=== PATIENT | male | born 1970 | race Caucasian/White ===

== ENCOUNTER 2016-12-01 15:31 | Emergency (ER) | payer OTHER ==
[~2016-12-01] VITALS: Ht 167.6 cm; Wt 79.5 kg
[~2016-12-01 15:31] MED LIST: NO MEDS
[2016-12-01 15:33] VITALS: Ht 167.6 cm; Wt 79.5 kg
[2016-12-01] MEDS ORDERED: LORAZEPAM 2 MG INJ IV STA (16:18)
[2016-12-01] MEDS ORDERED: MAGNESIUM SULFATE 2 GM, MULTIVITAMINS 10 ML, THIAMINE 100 MG, FOLIC ACID 1 MG in SOD CH... IV STA (16:18)
[2016-12-01] MEDS ORDERED: OLANZAPINE (ODT) 5 MG TAB PO STA (16:18)
--- NOTE | 2016-12-01 16:22 | ERA ---
ER Documentation Chief Complaint Date/Time DATE: 12/01/16 TIME: 16:22 Chief Complaint Auditory hallucinations x3 days. +Meth use yesterday, -SI/HI, +back pain HPI 46yo undomiciled male with h/o alcohol and methamphetamine abuse presents to the ED c/o several day h/o worsening auditory hallucinations and anxiety. Reports binge methamphetamine use for the last several days. No visual hallucinations. Denies suicidal or homicidal ideations. Denies chest pain, palpitations, shortness of breath, cough, nausea, vomiting or melanotic stools. No fevers or chills. ROS All systems reviewed and are negative except as per history of present illness. Medications Home Meds Active Scripts Lorazepam* (Lorazepam*) 1 Mg Tablet, 1 MG PO bed time, #7 TAB Prov:CARLITO RUSSELL MD 12/02/16 Olanzapine* (Zyprexa*) 10 Mg Tablet, 10 MG PO bed time, #7 TAB Prov:CARLITO RUSSELL MD 12/02/16 Discontinued Reported Medications [None] No Conflict Check 02/01/13 [No Meds] No Conflict Check 03/25/12 Allergies Allergies: Coded Allergies: No Known Allergy (Unverified , 12/01/16) PMhx/Soc Reviewed in chart. As per HPI. Medical and Surgical Hx: pt denies Medical Hx History of Surgery: Yes (tail bone cyst removal ) Anesthesia Reaction: No Hx Neurological Disorder: No Hx Respiratory Disorders: No Hx Cardiac Disorders: No Hx Psychiatric Problems: No Hx Miscellaneous Medical Probl: No Hx Alcohol Use: Yes (drinks beer 40oz x4 a day) Hx Substance Use: Yes Hx Tobacco Use: Yes (1 pack a day) Smoking Status: Current every day smoker FmHx No psychiatric disease, stroke or cancer. Physical Exam Vitals Vital Signs Date Time Temp Pulse Resp B/P Pulse Ox O2 Delivery O2 Flow Rate FiO2 12/02/16 06:03 64 16 126/63 100 Room Air 12/02/16 05:00 55 16 120/52 98 Room Air 12/02/16 03:00 63 16 112/62 100 Room Air 12/02/16 01:00 61 117/63 100 Room Air 12/01/16 23:15 73 16 112/63 100 Nasal Cannula 2.0 12/01/16 21:00 71 16 102/60 100 Nasal Cannula 2.0 12/01/16 19:30 74 16 103/59 100 Nasal Cannula 2.0 12/01/16 17:00 78 18 109/62 100 Nasal Cannula 2.0 12/01/16 15:33 98.3 101 16 136/81 96 Physical Exam Const: Alert, anxious, moderate distress. Poor hygiene. Head: Atraumatic Eyes: Normal Conjunctiva. EMILY. EOMI. Horizontal nystagmus. ENT: Normal External Ears, Nose and Mouth. Neck: Full range of motion. Nontender. No meningismus. Resp: Clear to auscultation bilaterally Cardio: Regular rate and rhythm, no murmurs Abd: Soft, non tender, non distended. Normal bowel sounds Skin: No petechiae or rashes Back: No midline or flank tenderness Ext: No cyanosis, or edema Neur: Awake and alert Psych: Anxious. Mildly agitated but cooperative. Responding to internal stimuli. Denies suicidal or homicidal ideations. Result Diagram: 12/01/16 1630 12/01/16 1630 Results 24 hrs Laboratory Tests Test 12/01/16 16:30 White Blood Count 13.010^3/ul Red Blood Count 4.5810^6/ul Hemoglobin 14.1g/dl Hematocrit 39.7% Mean Corpuscular Volume 86.7fl Mean Corpuscular Hemoglobin 30.8pg Mean Corpuscular Hemoglobin Concent 35.5g/dl Red Cell Distribution Width 11.6% Platelet Count 50081^3/UL Mean Platelet Volume 10.9fl Neutrophils % 71.3% Lymphocytes % 21.0% Monocytes % 5.7% Eosinophils % 1.2% Basophils % 0.4% Nucleated Red Blood Cells % 0.0/100WBC Neutrophils # 9.310^3/ul Lymphocytes # 2.710^3/ul Monocytes # 0.710^3/ul Eosinophils # 0.210^3/ul Basophils # 0.110^3/ul Nucleated Red Blood Cells # 0.010^3/ul Urine Color YELLOW Urine Clarity CLEAR Urine pH 5.5 Urine Specific [place] >=1.030 Urine Ketones NEGATIVE Urine Nitrite NEGATIVE Urine Bilirubin NEGATIVE Urine Urobilinogen 0.2 E.U./dL Urine Leukocyte Esterase NEGATIVE Urine Microscopic RBC NONE SEEN/HPF Urine Microscopic WBC 0-2/HPF Urine Bacteria FEW Urine Mucus MODERATE Urine Sperm MODERATE Urine Hemoglobin NEGATIVE Urine Glucose NEGATIVE% Urine Total Protein 1+ Sodium Level 139mmol/L Potassium Level 4.2mmol/L Chloride Level 102mmol/L Carbon Dioxide Level 28mmol/L Anion Gap 13 Blood Urea Nitrogen 19mg/dl Creatinine 1.12mg/dl Glucose Level 94mg/dl Calcium Level 9.4mg/dl Total Bilirubin 0.8mg/dl Direct Bilirubin 0.00mg/dl Indirect Bilirubin 0.8mg/dl Aspartate Amino Transf (AST/SGOT) 36IU/L Alanine Aminotransferase (ALT/SGPT) 38IU/L Alkaline Phosphatase 60IU/L Total Protein 7.6g/dl Albumin 4.9g/dl Globulin 2.70g/dl Albumin/Globulin Ratio 1.81 Salicylates Level < 1.0mg/dl Urine Opiates Screen Negative Acetaminophen Level < 10.0ug/ml Urine Barbiturates Negative Urine Amphetamines Screen POS Urine Benzodiazepines Screen Negative Urine Cocaine Screen Negative Urine Cannabinoids Negative Ethyl Alcohol Level < 10.0mg/dl Current Medications Medications (Trade) Dose Ordered Sig/Ashvin Route PRN Reason Start Time Stop Time Status Last Admin Dose Admin Magnesium Sulfate/ Multivitamins/ Thiamine HCl/ Folic Acid/Sodium Chloride (Magnesium Sulfate/Mvi Adult/ Vitamin B1/Folic Acid/NS) 1,015.2 ml @ 500 mls/ hr Q2H2M STAT IV 12/01/16 16:18 12/01/16 18:19 DC 12/01/16 16:41 Lorazepam (Ativan) 1 mg ONCE STAT IV 12/01/16 16:18 12/01/16 16:20 DC 12/01/16 16:38 Olanzapine (Zyprexa Zydis) 10 mg ONCE STAT PO 12/01/16 16:18 12/01/16 16:20 DC 12/01/16 16:41 Procedures/MDM DOCUMENTS REVIEWED: ED nurse, prior ED, prior records REEXAMINATION/REEVALUATION: Time: 18:00. Sleeping. O2 sat 100%. Uncooperative with social media job titles. Time: 19:00. Sleeping but arousable with sternal rub. Uncocoperative and "just wants to sleep. Time: 20:30. Sleeping. O2 sat 100% Time: 22:00. More easily arousable but still uncooperative. Medical Decision Makinyo undomiciled male with h/o alcohol and methamphetamine abuse presents to the ED c/o several day h/o worsening auditory hallucinations and anxiety. Zyprexa 10mg and Ativan 1mg given. Based on history , physical exam and appropriate lab tests, I appreciate no evidence of significant life threatening injury or illness that precludes psychiatric hospitalization. There are no toxic, infectious, metabolic, DIRECTOR OUTCOMES or other unstable co-morbities. Patient is thus medically clear but continues to be sleepy and uncooperative after 6 hours of observation. Presentation consistent with exacerbation of previously diagnosed psychiatric disease and methamphetamine induced psychosis. An element of alcohol withdrawal may be present but DT's unlikely. Patient will require ongoing observation pending tele -psychiatry evaluation when awake and cooperative. OBSERVATION NOTE: At 17:00 the patient was entered into observation to determine the nned for admission. During this time he was treated for agitation and hallucinations. Extensive evaluation and repeat exams performed. At 23:00 he is still sleepy and uncooperative. Will require ongoing observation and endorsed to the oncoming physician. TOTAL OBSERVATION TIME: 6 hours Departure Diagnosis: Primary Impression: Hallucinations Additional Impressions: Methamphetamine abuse Homelessness Condition: Serious KRISH ALFARO MD Dec 01, 2016 16:22
[2016-12-01 16:51] LABS: ADD SCAN DIFF NO
[2016-12-01 16:53] LABS: ADD UMIC YES; BASOPHIL # 0.1 10^3/ul (0.0-0.1); BASOPHILS % 0.4 % (0.0-2.0); EOSINOPHILS # 0.2 10^3/ul (0.0-0.5); EOSINOPHILS % 1.2 % (0.0-7.0); HEMATOCRIT 39.7 % (42.0-52.0); HEMOGLOBIN 14.1 g/dl (14.0-18.0); LYMPHOCYTES # 2.7 10^3/ul (0.8-2.9); MEAN CORPUSCULAR HEMOGLOBIN 30.8 pg (29.0-33.0); MEAN CORPUSCULAR HGB CONC 35.5 g/dl (32.0-37.0); MEAN CORPUSCULAR VOLUME 86.7 fl (82.0-101.0); MEAN PLATELET VOLUME 10.9 fl (7.4-10.4); MONOCYTE # 0.7 10^3/ul (0.3-0.9); MONOCYTES % 5.7 % (0.0-11.0); NEUTROPHIL # 9.3 10^3/ul (1.6-7.5); NEUTROPHILS % 71.3 % (39.0-77.0); PLATELET COUNT 258 10^3/UL (140-415); RED BLOOD COUNT 4.58 10^6/ul (4.70-6.10); RED CELL DISTRIBUTION WIDTH 11.6 % (11.5-14.5); UR BILIRUBIN (Dip) NEGATIVE (NEGATIVE); UR BLOOD (Dip) NEGATIVE (NEGATIVE); UR CLARITY CLEAR (CLEAR); UR COLOR YELLOW (YELLOW); UR GLUCOSE (Dip) NEGATIVE (NEGATIVE); UR KETONES (Dip) NEGATIVE (NEGATIVE); UR LEUKOCYTE ESTERASE (Dip) NEGATIVE (NEGATIVE); UR NITRITE (Dip) NEGATIVE (NEGATIVE); UR TOTAL PROTEIN (Dip) 1+ (NEGATIVE); UR UROBILINOGEN (Dip) 0.2 E.U./dL (0.1-1.0)
[2016-12-01 17:11] LABS: SPERM,URINE MODERATE
[2016-12-01 17:12] LABS: BACTERIA,URINE FEW; MUCUS,URINE MODERATE; URINE RBCS NONE SEEN /HPF (0)
[2016-12-01 17:14] LABS: ALANINE AMINOTRANSFERASE 38 IU/L (13-69); ALBUMIN 4.9 g/dl (3.3-4.9); ALBUMIN/GLOBULIN RATIO 1.81; ALKALINE PHOSPHATASE 60 IU/L (42-121); ANION GAP 13 (8-16); ASPARTATE AMINO TRANSFERASE 36 IU/L (15-46); BILIRUBIN,INDIRECT 0.8 mg/dl (0-1.1); BILIRUBIN,TOTAL 0.8 mg/dl (0.2-1.3); BLOOD UREA NITROGEN 19 mg/dl (7-20); CALCIUM 9.4 mg/dl (8.4-10.2); CARBON DIOXIDE 28 mmol/L (21-31); CHLORIDE 102 mmol/L (97-110); CREATININE 1.12 mg/dl (0.61-1.24); GLUCOSE 94 mg/dl (70-220); POTASSIUM 4.2 mmol/L (3.5-5.1); SODIUM 139 mmol/L (135-144); TOTAL PROTEIN 7.6 g/dl (6.1-8.1)
[2016-12-01 17:15] LABS: ACETAMINOPHEN < 10.0 ug/ml (10.0-30.0); BARBITURATES Negative (NEGATIVE); BENZODIAZEPINES Negative (NEGATIVE); CANNABINOIDS Negative (NEGATIVE); COCAINE Negative (NEGATIVE); OPIATES Negative (NEGATIVE); SALICYLATE < 1.0 mg/dl (5.0-30.0)
[2016-12-01 17:16] LABS: ETHANOL < 10.0 mg/dl
--- NOTE | 2016-12-02 02:57 | PSY ---
Date/Time of Note Date/Time of Note DATE: 12/02/16 TIME: 02:49 Psychiatric Subjective Eval Consent Pt consented to telemedicine: Yes Subjective Evaluation Patient location: emergency Chief Complaint: Auditory hallucinations x3 days. +Meth use yesterday, -SI/HI, +back pain Reason for consult: psychosis History of present illness patient is a 46 yo male with PPH Of depression, anxiety and alcohol and amphetamine dependence who came to the ER due to hallucanation and paranoia after using meth. he states that he was having "psychosis induced by alcohol and amphetamine", in the Er he was agitated so he was medicated with zyprexa and ativan. Patient states that he is feeling better now, denies any hallucination or paranoia, denies any HI or SI, he is alert and oriented times 3 and feels safe to be discharged, he has good insight about his symptoms.He states that he drinks 3 bottle of 40 oz beers a day but " i dont get drunk " and if he does not drink for a day he will get tremors. Past psychiatric history no past suicidal attempt used to be on severeal psych meds but cant remember the name Hospitalization: yes Family History denies Medical history Problems Medical Problems: (1) Abdominal pain Status: Acute (2) Abdominal pain Status: Acute (3) Elbow injury Status: Acute (4) Elbow injury Status: Acute (5) Elbow injury Status: Acute (6) Elbow pain Status: Acute (7) Elbow pain Status: Acute (8) Elbow pain Status: Acute Allergies: Coded Allergies: No Known Allergy (Unverified , 12/01/16) Substance Abuse Substance abuse history: Yes (amphetamine alcohol ) Prior substance abuse treatmen: No Social History Marital status: single Level of education: hs DPA/Conservatorship: No Occupation/Custodial: unemployed Psychiatric Objective Eval Review of Systems: Review of Systems: Not Applicable Physical Examination: Physical Examination: Applicable Sleep: Insomnia Appetite: Decreased Energy: Decreased Interest: Decreased Mental Status Examination: Appearance: Disheveled Eye Contact: Good Psychomotor Activity: Normal Behavior: Cooperative AFFECT: Appropriate Mood: Depressed Though Process: Linear Thought Content: Normal Suicidal: No Homicidal: No On 72 hour hold: No Cognition: Alert Insight: Intact Judgement: Intact Attention Span: Intact Laboratory Results Laboratory Tests Test 12/01/16 16:30 White Blood Count 13.010^3/ul Red Blood Count 4.5810^6/ul Hemoglobin 14.1g/dl Hematocrit 39.7% Mean Corpuscular Volume 86.7fl Mean Corpuscular Hemoglobin 30.8pg Mean Corpuscular Hemoglobin Concent 35.5g/dl Red Cell Distribution Width 11.6% Platelet Count 38752^3/UL Mean Platelet Volume 10.9fl Neutrophils % 71.3% Lymphocytes % 21.0% Monocytes % 5.7% Eosinophils % 1.2% Basophils % 0.4% Nucleated Red Blood Cells % 0.0/100WBC Neutrophils # 9.310^3/ul Lymphocytes # 2.710^3/ul Monocytes # 0.710^3/ul Eosinophils # 0.210^3/ul Basophils # 0.110^3/ul Nucleated Red Blood Cells # 0.010^3/ul Urine Color YELLOW Urine Clarity CLEAR Urine pH 5.5 Urine Specific [place] >=1.030 Urine Ketones NEGATIVE Urine Nitrite NEGATIVE Urine Bilirubin NEGATIVE Urine Urobilinogen 0.2 E.U./dL Urine Leukocyte Esterase NEGATIVE Urine Microscopic RBC NONE SEEN/HPF Urine Microscopic WBC 0-2/HPF Urine Bacteria FEW Urine Mucus MODERATE Urine Sperm MODERATE Urine Hemoglobin NEGATIVE Urine Glucose NEGATIVE% Urine Total Protein 1+ Sodium Level 139mmol/L Potassium Level 4.2mmol/L Chloride Level 102mmol/L Carbon Dioxide Level 28mmol/L Anion Gap 13 Blood Urea Nitrogen 19mg/dl Creatinine 1.12mg/dl Glucose Level 94mg/dl Calcium Level 9.4mg/dl Total Bilirubin 0.8mg/dl Direct Bilirubin 0.00mg/dl Indirect Bilirubin 0.8mg/dl Aspartate Amino Transf (AST/SGOT) 36IU/L Alanine Aminotransferase (ALT/SGPT) 38IU/L Alkaline Phosphatase 60IU/L Total Protein 7.6g/dl Albumin 4.9g/dl Globulin 2.70g/dl Albumin/Globulin Ratio 1.81 Salicylates Level < 1.0mg/dl Urine Opiates Screen Negative Acetaminophen Level < 10.0ug/ml Urine Barbiturates Negative Urine Amphetamines Screen POS Urine Benzodiazepines Screen Negative Urine Cocaine Screen Negative Urine Cannabinoids Negative Ethyl Alcohol Level < 10.0mg/dl Assessment and Plan Assessment/Diagnosis [place] I: mood do nos anxiety do nos amphetamine abuse alcohol dependance [place] II: deferred [place] III: as per record [place] IV: homeless [place] V: gaf 60 Recommendation/Plan Medication Management zyprexa 10 mg po qhs for one week for psychosis ativan 1 mg po qhs for anxiety Follow-up/Disposition In my opinion,for this patient, outpatient care is the least restrictive option. Based on available evidence, this condition CAN be safely treated at a lower level of care effective today. Patient is stable without clear and convincing evidence of imminent danger due to mental illness that requires acute inpatient psychiatric care as the least restrictive alternative. please refer patient to outpatient mental health clinic for medication management and pscyhotherapy as well as drug and alcohol rehab BERNY CRANDALL MD Dec 02, 2016 02:57
[2016-12-02] MEDS ORDERED: OLAN10TA7 PO (05:53)
[2016-12-02] MEDS ORDERED: LORA1TAB PO (05:54)
[2016-12-02 06:03] VITALS: BP 126/63; PULSE 64; RESP 16
== END 2016-12-02 06:15 | disposition home or self-care (01) ==
LOC: FTE 15:31 → E/R 12-02 06:15
DX: R44.0 Auditory hallucinations (principal); R40.2252 Coma scale, best verbal response, oriented, at arrival to emergency department; F15.10 Other stimulant abuse, uncomplicated; F17.210 Nicotine dependence, cigarettes, uncomplicated; R40.2142 Coma scale, eyes open, spontaneous, at arrival to emergency department; R40.2362 Coma scale, best motor response, obeys commands, at arrival to emergency department; Z59.0 Homelessness
CPT/HCPCS: 80053; 80306; 80307; 81001; 85025; J2060; J3411; J3475; J7030; Z7610; 36415; 96374; 96375

== ENCOUNTER → 2017-05-05 | Emergency (ER) | payer OTHER ==
[~2017-05-05] VITALS: Ht 170.2 cm; Wt 81.8 kg
[~2017-05-05] MED LIST changes: +AZITHROMYCIN 250 MG TAB PO ONE; +CEFTRIAXONE 250 MG INJ IM ONE; +LIDOCAINE 1% (MDV) 20 ML INJ SC ONE; +LORA1TAB PO; -NO MEDS; +OLAN10TA7 PO
[2017-05-05 18:35] VITALS: Ht 170.2 cm; Wt 81.8 kg
--- NOTE | 2017-05-05 19:17 | ERD ---
ER Documentation Chief Complaint Chief Complaint c/o whitish penile discharge, painful urination x 2 days HPI This 38-year-old male complains of penile discharge for the last 2 days. He has dysuria as well. He is concerned about recent exposure to STD. Denies fevers, vomiting shortness of breath chest pain. He denies any blisters or external lesions. Denies any testicular pain or swelling. ROS All systems reviewed and are negative except as per history of present illness. Medications Home Meds Active Scripts Lorazepam* (Lorazepam*) 1 Mg Tablet, 1 MG PO bed time, #7 TAB Prov:CARLITO RUSSELL MD 12/02/16 Olanzapine* (Zyprexa*) 10 Mg Tablet, 10 MG PO bed time, #7 TAB Prov:CARLITO RUSSELL MD 12/02/16 Allergies Allergies: Coded Allergies: No Known Allergy (Unverified , 05/05/17) PMhx/Soc History of Surgery: Yes (tail bone cyst removal 2013) Anesthesia Reaction: No Hx Neurological Disorder: No Hx Respiratory Disorders: No Hx Cardiac Disorders: No Hx Psychiatric Problems: Yes (SCHIZOPHRENIA ) Hx Miscellaneous Medical Probl: Yes (ADHD ) Hx Alcohol Use: Yes Hx Substance Use: Yes (METH USE 12/01/16 AT 6AM) Hx Tobacco Use: Yes (1/2 pack a day) Physical Exam Vitals Vital Signs Date Time Temp Pulse Resp B/P Pulse Ox O2 Delivery O2 Flow Rate FiO2 05/05/17 18:35 98.4 96 20 144/78 98 Physical Exam Const: [] Alert, [id number]. Head: Atraumatic Eyes: Normal Conjunctiva ENT: Normal External Ears, Nose and Mouth. Neck: Full range of motion..~ No meningismus. Resp: Clear to auscultation bilaterally Cardio: Regular rate and rhythm, no murmurs Abd: Soft, non tender, non distended. Normal bowel sounds Genital exam-. Testicles nontender normal size and descended bilaterally. There is thick yellow penile discharge. There is no external lesions. Skin: No petechiae or rashes Back: No midline or flank tenderness Ext: No cyanosis, or edema Neur: Awake and alert Psych: Normal Mood and Affect Results 24 hrs Current Medications Medications (Trade) Dose Ordered Sig/Ashvin Route PRN Reason Start Time Stop Time Status Last Admin Dose Admin Azithromycin (Zithromax) 1,000 mg ONCE ONCE PO 05/05/17 19:30 05/05/17 19:31 Ceftriaxone Sodium (Rocephin) 250 mg ONCE ONCE IM 05/05/17 19:30 05/05/17 19:31 Lidocaine (Xylocaine 1% (Mdv) 20 ml) 20 ml ONCE ONCE SC 05/05/17 19:30 05/05/17 19:31 Procedures/MDM Patient presents with signs of urethritis for last 2 days, likely gonorrhea. Urine was sent for gonorrhea and chlamydia. Patient was given Rocephin 250 mg IM and Zithromax 1 g by mouth. Patient was counseled on avoidance of unprotected sex notification partners. He is advised to recheck with primary doctor or for new or worsening symptoms. The patient was stable with no new complaints during the ER course. Clinically, there is no current evidence to suggest meningitis, sepsis, acute abdomen, pneumonia, acute coronary syndrome, pulmonary embolism, or any other emergent condition appearing to require further evaluation or hospitalization. The patient should certainly return for any new or worsening symptoms per the aftercare instructions. They should otherwise follow-up with her primary care doctor for reevaluation this week. Departure Diagnosis: Primary Impression: Urethritis Condition: Stable Patient Instructions: Urethritis in Men Additional Instructions: Avoid unprotected sex during the next week. Contact partners. Recheck for any worsening symptoms or primary care doctor. SEDA RYAN MD May 05, 2017 19:17
== END | disposition home or self-care (01) ==
LOC: FTE 18:04
DX: N34.2 Other urethritis (principal); F17.210 Nicotine dependence, cigarettes, uncomplicated
CPT/HCPCS: 87591; 96372; J0696; Z7502; Z7610

== ENCOUNTER 2018-07-26 16:11 | Emergency (ER) | payer OTHER ==
[~2018-07-26] VITALS: Wt 89.9 kg
[~2018-07-26 16:11] MED LIST changes: -AZITHROMYCIN 250 MG TAB PO ONE; -CEFTRIAXONE 250 MG INJ IM ONE; -LIDOCAINE 1% (MDV) 20 ML INJ SC ONE
[2018-07-26 16:26] VITALS: BP 161/88; PULSE 95; RESP 18
[2018-07-26] MEDS ORDERED: CEPH500C PO (19:27)
[2018-07-26] MEDS ORDERED: SULF1TAB31 PO (19:27)
[2018-07-26] MEDS ORDERED: CEPHALEXIN 500 MG CAP PO ONE (19:30)
[2018-07-26] MEDS ORDERED: TRIMETHOPRIM/SULFAMETHOX (DS) TAB PO ONE (19:30)
--- NOTE | 2018-07-26 19:55 | ERD ---
ER Documentation Chief Complaint Chief Complaint bib self, cc: skin infection / abscess on right above the knee abscess x 2d HPI 47-year-old male presents the ED complaining of an abscess on both his right knee that he is noted for the past 2 days. He denies any fevers. He denies any wrist range of motion. States that it was already draining. ROS All systems reviewed and are negative except as per history of present illness. Medications Home Meds Active Scripts Sulfamethoxazole/Trimethoprim* (Bactrim Ds* Tablet) 1 Each Tablet, 1 TAB PO BID, #20 TAB Prov:RY AL PA-C 07/26/18 Cephalexin* (Cephalexin*) 500 Mg Capsule, 500 MG PO Q6, #40 CAP Prov:RY AL PA-C 07/26/18 Lorazepam* (Lorazepam*) 1 Mg Tablet, 1 MG PO bed time, #7 TAB Prov:CARLITO RUSSELL MD 12/02/16 Olanzapine* (Zyprexa*) 10 Mg Tablet, 10 MG PO bed time, #7 TAB Prov:CARLITO RUSSELL MD 12/02/16 Allergies Allergies: Coded Allergies: No Known Allergy (Unverified , 05/05/17) PMhx/Soc History of Surgery: Yes (tail bone cyst removal 2013) Anesthesia Reaction: No Hx Neurological Disorder: No Hx Respiratory Disorders: No Hx Cardiac Disorders: No Hx Psychiatric Problems: Yes (SCHIZOPHRENIA ) Hx Miscellaneous Medical Probl: Yes (ADHD ) Hx Alcohol Use: Yes Hx Substance Use: Yes (METH USE 12/01/16 AT 6AM) Hx Tobacco Use: Yes (1/2 pack a day) Smoking Status: Current every day smoker Physical Exam Vitals Vital Signs Date Temp Pulse Resp B/P (MAP) Pulse Ox O2 O2 Flow FiO2 Time Delivery Rate 07/26/18 97.5 95 18 161/88 100 16:26 (112) Physical Exam Const: No acute distress Head: Atraumatic Eyes: Normal Conjunctiva ENT: Normal External Ears, Nose and Mouth. Neck: Full range of motion. No meningismus. Resp: Clear to auscultation bilaterally Cardio: Regular rate and rhythm, no murmurs Abd: Soft, non tender, non distended. Normal bowel sounds Skin: Erythematous papule above the right knee with scar tissue Back: No midline or flank tenderness Ext: No cyanosis, or edema Neur: Awake and alert Psych: Normal Mood and Affect Results 24 hrs Current Medications Medications Dose Sig/Ashvin Start Time Status Last (Trade) Ordered Route PRN Stop Time Admin Dose Reason Admin Cephalexin 500 mg ONCE ONCE 07/26/18 DC 07/26/18 (Keflex) PO 19:30 07/26/18 19:32 19:31 1 tab ONCE ONCE 07/26/18 DC 07/26/18 Trimethoprim/ PO 19:30 07/26/18 19:32 19:31 Sulfamethoxaz ole (Bactrim (Ds)) Procedures/MDM This is a 47-year-old male presenting to the ED with a small healing abscess above his right knee. It has already drained, there is no fluctuance for inci patricio and drainage. No signs of lymphangitis. No septic arthritis. Patient was given prescription for Keflex and Bactrim. He stable to be discharged home with return precautions. Departure Diagnosis: Primary Impression: Abscess Condition: Stable Patient Instructions: Abscess, Antiobiotic Treatment Only Referrals: [facility] (PCP) Additional Instructions: FOLLOW UP WITH YOUR PRIMARY CARE PHYSICIAN TOMORROW.Return to this facility if you are not improving as expected. Take all medicines as directed. Return to this facility if you are not improving as expected. RY AL PA-C Jul 26, 2018 19:55
== END 2018-07-26 19:41 | disposition home or self-care (01) ==
LOC: FTE 16:11
DX: L02.415 Cutaneous abscess of right lower limb (principal); F17.210 Nicotine dependence, cigarettes, uncomplicated; F90.9 Attention-deficit hyperactivity disorder, unspecified type
CPT/HCPCS: Z7502; Z7610; 99283